=== PATIENT | female | born 1955 | race Caucasian/White ===

== ENCOUNTER 2017-05-28 20:10 | Emergency (ER) | payer OTHER ==
[~2017-05-28] VITALS: Ht 162.6 cm; Wt 58.5 kg
[~2017-05-28 20:10] MED LIST: ACE500 PO; ACET500T68 PO; ALB18R IH; ALBU8.5H IH; ALEN70TA2 PO; ASCO-188 PO; ASPI81TA94 PO; BACL-51 PO; BISA-71 PO; BUD180R INH; CALC-1033 PO; CALC-767 PO; CALC1TAB58 PO; CELE-1 PO; CELE100C79 PO; CYC10 PO; DEN60I SUBQ; DIAZ2TAB72 PO; DIPH0.5D12 IM; DOCU-416 PO; DULERAPT IH; ESTR1VAG6 VG; FLU44R INH; GABA-549 PO; HYDR2TAB4 PO; LAN30PT PO; LANS30CA70 PO; LANS30TA12 PO; LOR5 PO; MELA1TAB23 PO; MELA3TAB31 PO; MELA5TAB6 PO; METH4TAB66 PO; MULT-885 PO; ONDA4TAB PO; OXYC20TA86 PO; PRED-1 PO; PREG100C44 PO; PREG50CA48 PO; SCOT TD; SENN-287 PO; TER20I SUBQ; TIZA4CAP3 PO; TRIA15CR40 TP
[2017-05-28] MEDS ORDERED: fentaNYL CITR 100 MCG/2 ML AMP IVP ONE ×3 (20:35→23:50)
[2017-05-28] MEDS ORDERED: ONDANSETRON 4 MG/2 ML VIAL IVP ONE (20:35)
--- NOTE | 2017-05-28 20:39 | ER Report ---
History and Physical Time Seen By MD: 20:24 Hx. of Stated Complaint: PT WAS WALKING DOWN STAIRS, TRIPPED AND FELT AND HEARD A CRACK AND POP IN R ANKLE, PAIN AND SWELLING AND LMIITED ROM ([facility] HPI/ROS CHIEF COMPLAINT: Right ankle injury HISTORY OF PRESENT ILLNESS: This is a 62-year-old female presents to the emergency department for a right ankle injury. Patient states that she was walking down her stairs and rolled her ankle and then fell down the remaining 2 stairs onto a carpeted floor. Patient states that the injury occurred about 45 minutes prior to arrival. Patient is unable to bear weight. Edema to the lateral and medial malleolus. Patient denies LOC, no C-spine pain. Patient denies chest pain, shortness of breath, nausea, vomiting, diarrhea, aches or chills. REVIEW OF SYSTEMS: Respiratory: No cough, no dyspnea. Cardiovascular: No chest pain, no palpitations. Gastrointestinal: No vomiting, no abdominal pain. Musculoskeletal: As above. ([facility] Allergies: Coded Allergies: codeine (Verified Allergy, Severe, N/V, 06/12/16) ciprofloxacin (Verified Allergy, Intermediate, HIVES, 06/12/16) Home Meds Active Scripts Hydromorphone Hcl (DILAUDID) 2 Mg Tablet, 1 MG PO Q4H, #10 TAB Take a half a tablet every 4 hours as needed for pain. Prov:[facility] 05/28/17 Ondansetron (ZOFRAN ODT) 4 Mg Tab.rapdis, 4 MG PO Q6H Y for NAUSEA/VOMITING, # 20 TAB.FANTASMA Prov:[facility] 05/28/17 Hydrocodone Bit/Acetaminophen (HYDROCODON-ACETAMINOPHEN 5-325) 1 Each Tablet, 1 EACH PO Q4-6H Y for PAIN, #20 TAB Prov:[facility]- 05/28/17 Pregabalin (LYRICA) 50 Mg Capsule, 1 CAP PO TID, #360 CAPSULE 1 Refill Prov:ANTHONY AVILEZ APRNP-C 05/17/17 Denosumab (PROLIA) 60 Mg/1 Ml Injs, 60 MG SUBQ q6 months, #1 SYR 1 Refill Prov:JOHNRASHARDANTHONY APRN-C 12/09/16 Albuterol Sulfate (VENTOLIN HFA) 18 Gm Inh, 1-2 PUFF IH Q4H Y for WHEEZING, #1 INHALER 1 Refill Prov:ANTHONY AVILEZ APRN-C 11/12/16 Lansoprazole (PREVACID) 30 Mg Tab.rap.dr, 1 TAB PO DAILY, #90 TAB 4 Refills Prov:ANTHONY AVILEZ APRN-C 10/09/16 Celecoxib (CELEBREX) 200 Mg Capsule, 1 TAB PO HS, #90 CAPSULE 3 Refills Prov:ANTHONY AVILEZ APRN-C 10/09/16 Reported Medications Melatonin (MELATONIN) 5 Mg Tablet, 5 MG PO HS 04/30/16 Calcium Carbonate/Vitamin D3 (CALCIUM 500 + VIT D CAPLET) 1 Each Tablet, 2 EACH PO DAILY 04/30/16 Discontinued Scripts Methylprednisolone (METHYLPREDNISOLONE) 4 Mg Tab.ds.pk, 4 MG PO DIRECTED, #1 DOSE-PACK 0 Refills Prov:ANTHONY AVILEZ APRN-C 03/22/17 Budesonide (PULMICORT FLEXHALER) 180 Mcg Aerp, 1 PUFF INH BID, #3 INH 3 Refills Prov:ANTHONY AVILEZ APRN-C 12/18/16 Estradiol (ESTRING) 1 Each Vag.ring, 1 EACH VG every 90 days for 90 Days, #1 VAG.RING 4 Refills Prov:ANTHONY AVILEZ APRN-C 10/09/16 Past Medical/Surgical History Patient has a past medical and surgical history of asthma, acid reflux, scoliosis, osteoporosis, back pain, wears glasses, back fusions, hysterectomy, neck fusion, tonsillectomy. ([facility] Reviewed Nurses Notes: Yes ([facility]) Hx Smoking: No Smoking Status: Never Smoker Hx Substance Use Disorder: No Hx Alcohol Use: Yes ([facility]) Constitutional Vital Sign - Last 24 Hours 05/28/17 05/28/17 05/28/17 05/28/17 20:10 20:19 20:21 20:25 Temp 98.4 Pulse ??? 80 ??? Resp 18 B/P (MAP) 118/67 (84) 118/67 Pulse Ox 91 O2 Delivery Room Air 05/28/17 05/28/17 05/28/17 05/28/17 20:40 20:50 20:55 21:00 Pulse ??? 66 B/P (MAP) 102/41 (61) 93/71 (78) Pulse Ox 93 05/28/17 05/28/17 05/28/17 05/28/17 21:10 21:15 21:30 22:00 Pulse 72 65 B/P (MAP) 105/63 (77) 122/67 (85) Pulse Ox 93 96 05/28/17 05/28/17 05/28/17 05/28/17 22:15 22:30 22:35 22:45 Pulse 69 70 Resp 7 B/P (MAP) 107/66 (80) 114/83 (93) Pulse Ox 97 96 05/28/17 05/28/17 05/28/17 05/28/17 22:45 23:15 23:34 23:35 Pulse 70 76 Resp 7 12 B/P (MAP) 144/78 (100) 134/62 (86) Pulse Ox 96 97 05/28/17 05/28/17 05/28/17 05/28/17 23:40 23:44 23:45 23:48 Pulse 76 Resp 19 B/P (MAP) 111/61 (78) 110/53 (72) 110/62 (78) Pulse Ox 97 05/28/17 05/28/17 05/29/17 05/29/17 23:52 23:56 00:00 00:04 B/P (MAP) 107/70 (82) 124/60 (81) 127/61 (83) 115/54 (74) 05/29/17 05/29/17 05/29/17 05/29/17 00:08 00:12 00:15 00:16 Pulse 68 Resp 14 B/P (MAP) 112/56 (74) 119/48 (71) 123/63 (83) Pulse Ox 97 05/29/17 05/29/17 05/29/17 05/29/17 00:20 00:24 00:28 00:28 Pulse 72 Resp 26 B/P (MAP) 121/53 (75) 118/61 (80) 128/62 (84) 128/62 (84) Pulse Ox 99 [facility] Physical Exam General Appearance: The patient is alert, has no immediate need for airway protection and no current signs of toxicity. Eyes: Pupils equal and round no injection. Respiratory: Chest is non tender, lungs are clear to auscultation. Cardiac: regular rate and rhythm, no murmurs, clicks or rubs. Gastrointestinal: Abdomen is soft and non tender, no masses, bowel sounds normal. Musculoskeletal: Neck: Neck is supple and non tender. Extremities right ankle edema with pain to the lateral and medial malleolus. No crepitus. Good CMS distal to the injury. No knee pain or deformity noted. Skin: No rashes or lesions. DIFFERENTIAL DIAGNOSIS: After history and physical exam differential diagnosis was considered for contusion, ankle fracture, ankle dislocation, tib-fib fracture. ([facility]) Medical Decision Making EKG/Imaging Imaging PATIENT NAME: Beverley Al : 1955 MR: [id number] V: [id number] EXAM DATE: ORDERING PHYSICIAN: [facility] TECHNOLOGIST: Location: [facility] Patient: Beverley Al : 1955 Visit/Account:[id number] Date of Sevice: 05/28/2017 INDICATION: Fall, right ankle pain and swelling. EXAM DATE: 05/28/2017 8:31 PM COMPARISON: None. FINDINGS: 3 views right ankle. Mineralization is normal. There are acute trimalleolar fractures. The lateral malleolus fracture is obliquely oriented and extends to the level of the ankle mortise. The distal fragment is posteriorly and laterally displaced. The posterior displacement is approximately 6 mm, lateral displacement is 3 mm. The medial malleolus is distally and laterally displaced with approximately 6 mm of diastasis. Posterior malleolus is posteriorly displaced approximately 5 mm. There is widening of the medial aspect of the ankle mortise. Prominent soft tissue swelling about the ankle. IMPRESSION: Displaced trimalleolar fractures of the right ankle with widening of the ankle mortise consistent with ligamentous injury. Report Dictated By: Norman Mcclure MD at 05/28/2017 9:14 PM Report E-Signed By: Norman Mcclure MD at 05/28/2017 9:17 PM WSN:[id number] PATIENT NAME: Beverley Al : 1955 MR: [id number] V: [id number] EXAM DATE: ORDERING PHYSICIAN: [facility] TECHNOLOGIST: Location: [facility] Patient: Beverley Al : 1955 Visit/Account:[id number] Date of Sevice: 05/28/2017 INDICATION: EXAM DATE: 05/28/2017 11:54 PM COMPARISON: 05/28/2017. FINDINGS: 3 views right ankle. Mineralization is normal. Redemonstration of trimalleolar fracture of the right ankle with improved post reduction alignment at the medial and posterior malleolar fractures. Talotibial alignment also appears improved. There is persistent posterior and lateral displacement at the lateral malleolar fracture. IMPRESSION: Largely improved alignment of the previously seen right-sided trimalleolar fracture with persistent displacement at the lateral malleolus fracture. Report Dictated By: Norman Mcclure MD at 05/29/2017 12:15 AM Report E-Signed By: Norman Mcclure MD at 05/29/2017 12:18 AM WSN:[id number] ([facility]) ED Course/Re-evaluation Clinical Indication for ER IV: Hydration, IV Access ED Course The patient was admitted to room. A history physical were obtained. Differential diagnoses were considered. An IV was started. 50 g IV fentanyl were given x3. A 3 view x-ray was obtained of the ankle showing a trimalleolar fracture. I did review the case with Dr. Patel as noted below and we will go ahead and reduce and splint her ankle and have her follow-up with [facility] on Wednesday, she will need surgery. I did review the results with the patient she is very upset about needing surgery. The patient's right ankle was reduced and splinted as noted below. Patient did very well with the procedure. The patient was given 1 mg oral Dilaudid, patient was also given a take home pack for Dilaudid. Patient was also given a prescription for Dilaudid and Zofran. The patient was encouraged to return to emergency department if she has any other concerns or increased numbness or tingling or pain that seems out of proportion with her right ankle. The patient and her had no other questions or concerns and discharged home. 05/28/2017 9:54:[address] Patel from [facility] regarding the patient's case. He did say that she will require surgery with this trimalleolar fracture. He also said we can go ahead and reduce the ankle in the emergency department and splint it then have her follow-up in his clinic on Wednesday [facility]. I did discuss this with the patient and her . Procedure: Procedural sedation. A pre-sedation evaluation was completed on the patient at 2330. Patient is an appropriate candidate for reduction of a trimalleolar fracture of the right ankle. The risks of the sedation were discussed with the patient. A time out was completed. The patient was reevaluated immediately prior to initiation of sedation. The patient was sedated with fentanyl and propofol. The patient was monitored with continuous pulse oximetry and gambling monitor. There were no complications and no significant hypoxemia. I remained at the bedside for the sedation. The total time I spent in the procedural sedation was 10 minutes. Post sedation evaluation: Patient was alert and cooperative, hemodynamically stable with appropriate respiratory status, temperature and pain control without ongoing nausea and vomiting. Procedure: Ankle reduction: The right ankle was reduced in the usual fashion without complications. Post reduction the patient's neurovascular exam is normal. Post reduction x-ray demonstrates reduction of the joint to the anatomic position. The procedure was performed by myself and Dr. Hart. Decision to Disposition Date: May 29, 2017 Decision to Disposition Time: 00:36 ([facility] Depart Departure Latest Vital Signs Vital Signs Date Time Temp Pulse Resp B/P (MAP) Pulse Ox O2 Delivery O2 Flow Rate FiO2 05/29/17 00:28 128/62 (84) 05/29/17 00:28 72 26 99 05/28/17 20:21 98.4 Room Air (DAWIT HART MD) Impression: Primary Impression: Trimalleolar fracture Condition: Improved Disposition: HOME OR SELF-CARE Referrals: ANTHONY AVILEZ APRN MICROBIOLOGY LAB TECHNICIAN-C (PCP) LAURO PATEL MD New Scripts Hydromorphone Hcl (DILAUDID) 2 Mg Tablet 1 MG PO Q4H, #10 TAB Take a half a tablet every 4 hours as needed for pain. Prov: [facility]- 05/28/17 Ondansetron (ZOFRAN ODT) 4 Mg Tab.rapdis 4 MG PO Q6H Y for NAUSEA/VOMITING, #20 TAB.FANTASMA Prov: [facility]- 05/28/17 Hydrocodone Bit/Acetaminophen (HYDROCODON-ACETAMINOPHEN 5-325) 1 Each Tablet 1 EACH PO Q4-6H Y for PAIN, #20 TAB Prov: [facility]- 05/28/17 Patient Instructions: Ankle Fracture (ED) Additional Instructions: Drink plenty of fluids. Get plenty of rest. Be sure to keep your right ankle elevated above the level of the heart as much as possible. Apply Ice to the affected area 30in on 6 times a day. You can try ibuprofen for pain or half a tablet of Dilaudid (1mg) for severe pain, no drinking alcohol or driving while taking narcotics. Take nausea medication as needed. Call Dr. Patel's office at [facility], Wednesday morning to confirm Tuesdays appointment. If over the weekend you have any complications or any other concerns such as increased numbness or tingling severe pain be sure to return to the emergency department. BILINGUAL OPERATOR/PA consult with MD: Verbally, Examined Patient MD Consult Note: Jonn Muñoz with the sedation and the reduction of the trimalleolar fracture. Reviewed post-reduction films. Adequate reduction. Agree with plan of care. (DAWIT HART MD) Problem Qualifiers Primary Impression: Trimalleolar fracture Encounter type: initial encounter Fracture type: closed Laterality: right Qualified Codes: S82.851A - Displaced trimalleolar fracture of right lower leg, initial encounter for closed fracture [facility]ON[facility]- May 28, 2017 20:39 DAWIT HART MD May 28, 2017 22:45
--- NOTE | 2017-05-28 21:20 | RADIOLOGY IMAGING REPORT ---
FACILITY: [facility] PATIENT NAME: Beverley Al : 1955 MR: [id number] V: [id number] EXAM DATE: ORDERING PHYSICIAN: [facility] TECHNOLOGIST: Location: [facility] Patient: Beverley Al : 1955 Visit/Account:[id number] Date of Sevice: 05/28/2017 INDICATION: Fall, right ankle pain and swelling. EXAM DATE: 05/28/2017 8:31 PM COMPARISON: None. FINDINGS: 3 views right ankle. Mineralization is normal. There are acute trimalleolar fractures. The lateral malleolus fracture is obliquely oriented and extends to the level of the ankle mortise. The distal f ragment is posteriorly and laterally displaced. The posterior displacement is approximately 6 mm, la teral displacement is 3 mm. The medial malleolus is distally and laterally displaced with approximat atiya 6 mm of diastasis. Posterior malleolus is posteriorly displaced approximately 5 mm. There is wi dening of the medial aspect of the ankle mortise. Prominent soft tissue swelling about the ankle. IMPRESSION: Displaced trimalleolar fractures of the right ankle with widening of the ankle mortise c onsistent with ligamentous injury. Report Dictated By: Norman Mcclure MD at 05/28/2017 9:14 PM Report E-Signed By: Norman Mcclure MD at 05/28/2017 9:17 PM WSN:[id number]
[2017-05-28] MEDS ORDERED: PROPOFOL EMUL 10MG/ML 20 ML VL IV ONE (21:50)
[2017-05-28] MEDS ORDERED: HYDR-385 PO (22:02)
[2017-05-28] MEDS ORDERED: ONDA4TAB PO (22:02)
[2017-05-28] MEDS ORDERED: ACET/HYDROC 5/325MG TH ER ONLY 2 TAB/BOTTLE PO ONE (22:15)
[2017-05-28] MEDS ORDERED: ONDANSETRON 4 MG ODT TH SL ONE (22:20)
[2017-05-28] MEDS ORDERED: HYDROmorphone 2 MG TAB TH 2 TAB/BOTTLE PO ONE (22:35)
[2017-05-28] MEDS ORDERED: HYDR2TAB74 PO (22:41)
[2017-05-29] MEDS ORDERED: HYDROmorphone HCL 2 MG TAB PO ONE
--- NOTE | 2017-05-29 00:23 | RADIOLOGY IMAGING REPORT ---
FACILITY: [facility] PATIENT NAME: Beverley Al : 1955 MR: [id number] V: [id number] EXAM DATE: ORDERING PHYSICIAN: [facility] TECHNOLOGIST: [place] [facility] [place] [place] Beverley Al : 1955 Visit/Account:[id number] Date of Sevice: 05/28/2017 INDICATION: EXAM DATE: 05/28/2017 11:54 PM COMPARISON: 05/28/2017. FINDINGS: 3 views right ankle. Mineralization is normal. Redemonstration of trimalleolar fracture of the right ankle with improved post reduction alignment at the medial and posterior malleolar fractures. Talot ibial alignment also appears improved. There is persistent posterior and lateral displacement at the lateral malleolar fracture. IMPRESSION: Largely improved alignment of the previously seen right-sided trimalleolar fracture with persistent displacement at the lateral malleolus fracture. Report Dictated By: Norman Mcclure MD at 05/29/2017 12:15 AM Report E-Signed By: Norman Mcclure MD at 05/29/2017 12:18 AM WSN:[id number]
[2017-05-29 00:28] VITALS: BP 128/62
== END 2017-05-29 00:45 | disposition home or self-care (01) ==
LOC: ER 20:32
DX: S82.851A Displaced trimalleolar fracture of right lower leg, initial encounter for closed fracture (principal); W10.9XXA Fall (on) (from) unspecified stairs and steps, initial encounter
CPT/HCPCS: 27818; 73610; 96374; 96375; 96376; 99284; A9270; J2405; J2704; J3010; S0119

== ENCOUNTER → 2017-09-08 | Outpatient (CLI) | payer OTHER ==
[~2017-09-08] MED LIST changes: +FLU60SYR30 IM ONLY; +HYDR-385 PO; +HYDR2TAB74 PO
--- NOTE | 2017-09-08 14:01 | RADIOLOGY IMAGING REPORT ---
FACILITY: [facility] [place] PATIENT NAME: Beverley Al : 1955 MR: [id number] V: [id number] EXAM DATE: ORDERING PHYSICIAN: ANTHONY AVILEZ TECHNOLOGIST: Location: [facility] Patient: Beverley Al : 1955 Visit/Account:[id number] Date of Sevice: 09/08/2017 DEXA Scan Clinical history: Osteopenia. Comparison: 08/28/2016. HIP: Bone mineral density (BMD) measured in the Left total hip region correlates with a Z-score -1.2 and a T-score of is 2.3 which is osteopenia as defined by the World Health Organization. The correspond ing risk of fracture in the hip is 4-6 times increased compared with a young adult reference populati on.. This represents a 6.2% increase when compared the prior study. T score left femoral neck is -2 Bone mineral density (BMD) measured in the Femoral Neck region measures 0.762 g/cm2. FOREARM: The bone mineral density (BMD) measured in the ULTRADISTAL Left forearm, where trabecular bone predom inates, correlates with a Z-score -2 and a T-score of -3 which is osteoporosis as defined by the Worl d Health Organization. The corresponding risk of fracture in the distal forearm is 8 times increased compared with a young adult reference population. The bone mineral density (BMD) in the MIDSHAFT of the forearm, where cortical bone predominates, reji elates with a Z-score -0.4 and a T-score of -1.3 which is osteopenia as defined by the World Health O rganization. The corresponding risk of fracture in the midshaft of the forearm is 2-3 times increased compared with a young adult reference population. This represents a 4.3% increase when compared the prior study IMPRESSION: 1. Left Hip: Osteopenia. . There has been a 6.2% increase in bone mineral density when compared th e prior study 2. Femoral Neck: Bone Mineral Density is 0.762 g/cm2 3. Left Forearm: Osteoporosis. . There has been a 4.3% increase in bone mineral density when comp ared the prior study The next DEXA scan of this patient should include the following sites: Left hip and the left forearm. FRAX? WHO Fracture Risk Assessment Tool link: <http://www.shef.ac.uk/FRAX/tool.jsp?locationValue=9> PLEASE NOTE: 1) The World Health Organization defines low BMD as follows: T-score Normal > -1 Osteopenia < -1 and > -2.5 Osteoporosis < -2.5 without fractures Established osteoporosis < -2.5 with fractures 2) In general, you may wish to consider: Diagnosis Treatment Follow-up DEXA Normal BMD Prevention 2-3 years Osteopenia Prevention/therapy 1-2 years Osteoporosis Therapy Yearly 3) Fracture risk estimated from the T-score is more accurate for vertebral fractures (often spontane ous) than for hip fractures. Report Dictated By: Evangelina Murphy MD at 09/08/2017 1:48 PM Report E-Signed By: Evangelina Murphy MD at 09/08/2017 1:56 PM WSN:[email or web address]
--- NOTE | 2017-09-09 10:29 | RADIOLOGY IMAGING REPORT ---
FACILITY: [facility] PATIENT NAME: JOSELINE VAN : [id number] MR: [id number] V: [id number] EXAM DATE: [id number] ORDERING PHYSICIAN: ANTHONY AVILEZ TECHNOLOGIST: Alejandrina Hood PROCEDURE:BILATERAL DIGITAL SCREENING MAMMOGRAM WITH CAD ASSISTED INTERPRETATION & 3D TOMOSYNTHESIS COMPARISON:Prior mammograms 08/28/16, 08/13/15, 04/13/14, 02/18/12, 02/16/11. INDICATIONS:Cancer Screening FINDINGS: Moderately dense fibroglandular tissue is seen throughout the breasts. The parenchymal pattern has remained stable allowing for difference in mammographic technique & patient positioning. There is no evidence of malignant appearing mass, malignant appearing calcifications or other secondary sign of malignancy in either breast. DIAGNOSTIC CATEGORY 1--NEGATIVE. RECOMMENDATIONS: ROUTINE MAMMOGRAM AND CLINICAL EVALUATION. IMPRESSION: BIRADS 1: Negative No significant abnormality is seen. Dictated by: Evangelina Murphy M.D. on 09/08/2017 at 16:40 Transcribed by: ANUPAM on 09/09/2017 at 9:17 Approved by: Evangelina Murphy M.D. on 09/09/2017 at 10:28 [facility]
== END ==
LOC: MAMO 01:20
PROVIDERS: ATTEND Nurse Practitioner Family
DX: Z13.820 Encounter for screening for osteoporosis (principal); Z12.31 Encounter for screening mammogram for malignant neoplasm of breast; M85.88 Other specified disorders of bone density and structure, other site; M81.0 Age-related osteoporosis without current pathological fracture; Z78.0 Asymptomatic menopausal state
CPT/HCPCS: 77063; 77067; 77080

== ENCOUNTER → 2017-09-28 | Outpatient (CLI) | payer OTHER | LOC: LAB 08:14 | PROVIDERS: ATTEND Nurse Practitioner Family | DX: R79.89 Other specified abnormal findings of blood chemistry (principal) | CPT/HCPCS: 36415; 82040; 82247; 82248; 84075; 84155; 84450; 84460 ==

== ENCOUNTER → 2017-10-06 | Outpatient (CLI) | payer OTHER ==
[2017-10-06 08:52] LABS: PLATELET COUNT, AUTOMATED 209 K/uL (150-450)
--- NOTE | 2017-10-06 16:46 | RADIOLOGY IMAGING REPORT ---
FACILITY: [facility] [place] PATIENT NAME: Beverley Al : 1955 MR: [id number] V: [id number] EXAM DATE: ORDERING PHYSICIAN: ANTHONY AVILEZ TECHNOLOGIST: Location: [facility] Patient: Beverley Al : 1955 Visit/Account:[id number] Date of Sevice: 10/06/2017 LIVER HISTORY: Elevated liver enzymes COMPARISON: October 14, 2016 FINDINGS: Gallbladder: Unremarkable; no stones or sludge. Liver: The 1.3 cm echogenic mass posterior aspect right lobe of the liver has remained stable.. The right lobe of the liver slightly elongated at 18.4 cm. Common duct: Slightly prominent for patient of this age 7.5 mm diameter. Pancreas: Partially obscured by bowel, visualized aspects unremarkable. Right kidney: Right kidney appears unremarkable measuring 9.2 cm in length Upper abdominal aorta and IVC: Patent. Ascites: None visualized. IMPRESSION: 1.3 cm echogenic mass right lobe the liver appears stable Common bile duct is slightly dilated at 7.5 mm although no evidence of intrahepatic duct dilatation a nd the gallbladder appears unremarkable Report Dictated By: Evangelina Murphy MD at 10/06/2017 4:38 PM Report E-Signed By: Evangelina Murphy MD at 10/06/2017 4:41 PM WSN:[email or web address]
== END ==
LOC: US 01:04
PROVIDERS: ATTEND Nurse Practitioner Family
DX: R16.0 Hepatomegaly, not elsewhere classified (principal)
CPT/HCPCS: 36415; 76705; 82728; 83540; 83550; 85025; 86706; 86707; 87340; 87350; 87522

== ENCOUNTER → 2017-11-08 | Outpatient (CLI) | payer OTHER | LOC: LAB 10:15 | PROVIDERS: ATTEND Nurse Practitioner Family | DX: R94.5 Abnormal results of liver function studies (principal) | CPT/HCPCS: 36415; 82040; 82247; 82248; 84075; 84155; 84450; 84460 ==

== ENCOUNTER → 2018-01-25 | Outpatient (CLI) | payer OTHER ==
--- NOTE | 2018-01-25 10:25 | RADIOLOGY IMAGING REPORT ---
[place] [facility] [place] NAME: Beverley Al : 1955 MR: [id number] V: [id number] EXAM DATE: ORDERING PHYSICIAN: ANTHONY AVILEZ TECHNOLOGIST: [place] [facility] [place] Beverley Al : 1955 Visit/Account:[id number] Date of Sevice: 01/25/2018 Two views views right ankle INDICATION: Pain in the ankle for two weeks COMPARISON: None FINDINGS: Two views of left ankle are submitted. Distal tibia and fibula are intact. Mortise is symmetric. T alar dome is unremarkable. No fracture or destructive osseous process. IMPRESSION: 1. No acute osseous abnormality of the right ankle Report Dictated By: Mihir Moya MD at 01/25/2018 10:16 AM Report E-Signed By: Mihir Moya MD at 01/25/2018 10:20 AM WSN:[id number]
== END ==
LOC: RAD 09:28
PROVIDERS: ATTEND Nurse Practitioner Family
DX: M25.579 Pain in unspecified ankle and joints of unspecified foot (principal)